=== PATIENT | female | born 1985 | race Caucasian/White ===

== ENCOUNTER 2018-03-24 10:33 | Emergency (ER) | payer MEDICAID ==
--- NOTE | 2018-03-24 10:51 | ER Document Report ---
ED Medical Screen (RME) - General Chief Complaint: Vag Bleeding, +preg <12wks Stated Complaint: VAGINAL BLEEDING Time Seen by Provider: 03/24/18 10:47 Notes: 32-year-old female patient is 8 weeks by history. Has been seen at health department. Has not had an ultrasound. Developed some bright red bleeding yesterday that has persisted today. There are no clots, there is no cramping. She is A0, had a about 9 years ago. Does not recall receiving RhoGam shots at that time. I have greeted and performed a rapid initial assessment of this patient. A comprehensive ED assessment and evaluation of the patient, analysis of test results and completion of the medical decision making process will be conducted by additional ED providers. TRAVEL OUTSIDE OF THE [place] IN LAST 30 DAYS: No - Related Data Allergies/Adverse Reactions: No Known Allergies Allergy (Unverified 03/24/18 10:47) Past Medical History - Social History Chew tobacco use (# tins/day): No Frequency of alcohol use: None Drug Abuse: None Renal/ Medical History: Denies: Hx Peritoneal Dialysis Physical Exam - Vital signs Vitals: Temp Pulse Resp BP Pulse Ox 98.2 F 97 14 111/70 100 03/24/18 10:39 03/24/18 10:39 03/24/18 10:39 03/24/18 10:39 03/24/18 10:39 Course - Vital Signs Vital signs: Temp Pulse Resp BP Pulse Ox 98.2 F 97 14 111/70 100 03/24/18 10:39 03/24/18 10:39 03/24/18 10:39 03/24/18 10:39 03/24/18 10:39
--- NOTE | 2018-03-24 11:35 | RADIOLOGY REPORT (SQ) ---
EXAM DESCRIPTION: U/S OB TRANSVAGINAL W/O DOP COMPLETED DATE/TIME: 03/24/2018 11:25 am REASON FOR STUDY: 8wk, bleeding, no US COMPARISON: None. TECHNIQUE: Transvaginal static and realtime grayscale images acquired of the pelvis. Additional parisa cted spectral and color Doppler images recorded. All images stored on PACs. bHCG: Pending CLINICAL DATES: Last menses 01/28/2018 LIMITATIONS: None. FINDINGS: FETUS: Living intrauterine . ULTRASOUND EGA: 8 weeks 2 days ULTRASOUND ROCKY: 11/01/2018 CRL: Generates an age of 8 weeks 2 days FHR: 168 beats per minute. SUBCHORIONIC BLEED: Yes SIZE OF BLEED: 3 x 1.7 x 1.3 cm in size UTERUS: No masses. No anomalies. Uterus is 9 x 7 x 8 cm in size CERVICAL LENGTH: 2 cm Closed. RIGHT ADNEXA: Normal ovary with normal vascular flow. Right ovary 1.8 x 1.6 x 1.5 cm in size No adnexal free fluid. No adnexal masses. LEFT ADNEXA: Normal ovary with normal vascular flow. Left ovary 3.7 x 3.1 x 2.5 cm in size No adnexal free fluid. No adnexal masses. FREE FLUID: None. OTHER: No other significant finding. IMPRESSION: LIVING INTRAUTERINE . EGA 8 weeks 2 days Trimester of : First - 0 to 13 weeks. TECHNICAL DOCUMENTATION: JOB ID: [id number] [employer]- All Rights Reserved rev Reading location - IP/workstation name: [facility]
--- NOTE | 2018-03-24 11:39 | ER Document Report ---
ED General - General Chief Complaint: Vag Bleeding, +preg <12wks Stated Complaint: VAGINAL BLEEDING Time Seen by Provider: 03/24/18 10:47 Mode of Arrival: Ambulatory Information source: Patient Notes: Patient presents emergency department with complaints of vaginal bleeding this morning. Patient reports she is approximately 8 weeks . Patient reports LMP 01/28/2018. Patient reports this morning at work she felt like she was bleeding. She reports she filled a panty liner. She reports she always wears a panty liners. She then presented to the emergency department. Denies trauma. Denies cramps abdominal pain. Denies fever vomiting diarrhea. Reports she was spotting just a little bit couple hours ago. No recent bleeding. She is unsure what her blood type is. Denies vaginal discharge, denies pain with void. Denies urinary frequency. TRAVEL OUTSIDE OF THE [place] 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 Lives with: Family Family History: None Patient has suicidal ideation: No Patient has homicidal ideation: No - Medical History Medical History: Negative Renal/ Medical History: Denies: Hx Peritoneal Dialysis Past Surgical History: Reports: Hx Section Review of Systems - Review of Systems Notes: Review HPI for review of systems., All other systems negative Physical Exam - Vital signs Vitals: Temp Pulse Resp BP Pulse Ox 98.2 F 97 14 111/70 100 03/24/18 10:39 03/24/18 10:39 03/24/18 10:39 03/24/18 10:39 03/24/18 10:39 - Notes Notes: PHYSICAL EXAMINATION: GENERAL: Well-appearing and in no acute distress HEAD: Atraumatic, normocephalic. EYES: Pupils equal round, extraocular movements intact, sclera anicteric, conjunctiva are normal. ENT: nares patent, oropharynx clear without exudates. Moist mucous membranes. NECK: Normal range of motion, supple without lymphadenopathy LUNGS: CTAB and equal. No wheezes rales or rhonchi. HEART: Regular rate and rhythm without murmurs ABDOMEN: Soft, no tenderness. No guarding, no rebound EXTREMITIES: Normal range of motion, no pitting edema. No cyanosis. NEUROLOGICAL: Cranial nerves grossly intact. Normal sensory/motor exams. PSYCH: Normal mood, normal affect. SKIN: Warm, Dry, normal turgor, no rashes or lesions noted Course - Re-evaluation Re-evalutation: 03/24/18 12:25 A+ No rhogam needed, pt provided with copy of US, US living IUP at 8 weeks 2 days and heart rate of 168. Subchorionic bleed, No active bleeding at this time. No abdominal pain. 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 - Vital Signs Vital signs: Temp Pulse Resp BP Pulse Ox 98.2 F 97 14 111/70 100 03/24/18 10:39 03/24/18 10:39 03/24/18 10:39 03/24/18 10:39 03/24/18 10:39 - Laboratory Result Diagrams: 03/24/18 11:20 Laboratory results interpreted by me: 03/24/18 03/24/18 11:20 11:20 Hgb 11.9 L Hct 34.4 L Seg Neutrophils % 79.2 H Lymphocytes % 10.9 L Beta HCG, Quant 370824.00 H - Diagnostic Test Radiology reviewed: Image reviewed, Reports reviewed - EXAM DESCRIPTION: U/S OB TRANSVAGINAL W/O DOP COMPLETED DATE/TIME: 03/24/2018 11:25 am REASON FOR STUDY : 8wk, bleeding, no US COMPARISON: None. TECHNIQUE: Transvaginal static and realtime grayscale images acquired of the pelvis. Additional selected spectral and color Doppler images recorded. All images stored on PACs. bHCG: Pending CLINICAL DATES: Last menses 01/28/2018 LIMITATIONS: None. FINDINGS: FETUS: Living intrauterine . ULTRASOUND EGA: 8 weeks 2 days ULTRASOUND ROCKY: 11/01/2018 CRL: Generates an age of 8 weeks 2 days FHR: 168 beats per minute. SUBCHORIONIC BLEED: Yes SIZE OF BLEED: 3 x 1.7 x 1.3 cm in size UTERUS: No masses. No anomalies. Uterus is 9 x 7 x 8 cm in size CERVICAL LENGTH: 2 cm Closed. RIGHT ADNEXA: Normal ovary with normal vascular flow. Right ovary 1.8 x 1.6 x 1.5 cm in size No adnexal free fluid. No adnexal masses. LEFT ADNEXA : Normal ovary with normal vascular flow. Left ovary 3.7 x 3.1 x 2.5 cm in size No adnexal free fluid. No adnexal masses. FREE FLUID: None. OTHER: No other significant finding. IMPRESSION: LIVING INTRAUTERINE . EGA 8 weeks 2 days Trimester of : First - 0 to 13 weeks. 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 heart rate of 168. Subchorionic bleed *Follow up with a BLAST FURNACE HELPER or the health department for recheck *Avoid sexual intercourse until follow up *Return to ED for worsening condition, changes, needs Forms: Return to Work
[2018-03-24 11:54] LABS: ABSOLUTE EOSINOPHILS # (AUTO) 0.1 10^3/uL (0.0-0.6); ABSOLUTE MONOCYTES (AUTO) 0.8 10^3/uL (0.1-1.4); BASOPHILS % (AUTO) 0.2 % (0-2); EOSINOPHILS % (AUTO) 0.6 % (0-6); HEMATOCRIT 34.4 % (36.0-47.0); HEMOGLOBIN 11.9 g/dL (12.0-15.5); LYMPHOCYTES % (AUTO) 10.9 % (13-45); MEAN CORPUSCULAR HEMOGLOBIN 31.2 pg (27.0-33.4); MEAN CORPUSCULAR HGB CONC 34.6 g/dL (32.0-36.0); MEAN CORPUSCULAR VOLUME 90 fl (80-97); MONOCYTES % (AUTO) 9.1 % (3-13); PLATELET COUNT 298 10^3/uL (150-450); RED BLOOD COUNT 3.82 10^6/uL (3.72-5.28); RED CELL DISTRIBUTION WIDTH 12.8 % (11.5-14.0); SEGMENTED NEUTROPHILS % (AUTO) 79.2 % (42-78); TOTAL CELLS COUNTED % (AUTO) 100 %; WHITE BLOOD COUNT 8.8 10^3/uL (4.0-10.5)
[2018-03-24 13:10] VITALS: BP 106/76
== END 2018-03-24 13:00 | disposition home or self-care (01) ==
LOC: ER 10:33
DX: O20.8 Other hemorrhage in early pregnancy (principal); Z3A.08 8 weeks gestation of pregnancy
CPT/HCPCS: 36415; 76817; 84702; 85025; 86900; 86901; 99284

== ENCOUNTER 2018-10-24 00:22 | Inpatient (IN) | payer MEDICAID ==
[2018-10-24 01:07] LABS: APPEARANCE,URINE CLEAR; BILIRUBIN,URINE NEGATIVE (NEGATIVE); COLOR,URINE STRAW; GLUCOSE, URINE NEGATIVE (NEGATIVE); KETONES,URINE NEGATIVE (NEGATIVE); LEUKOCYTE ESTERASE,URINE NEGATIVE (NEGATIVE); NITRITE,URINE NEGATIVE (NEGATIVE); PROTEIN,URINE NEGATIVE (NEGATIVE); URINE SPECIFIC GRAVITY 1.005; UROBILINOGEN,URINE NEGATIVE mg/dL (<2.0)
[2018-10-24] MEDS ORDERED: RINGERS SOLUTION,LACTATED 1,000 ML IV PRN ×2 (01:18→02:07)
[2018-10-24] MEDS ORDERED: CITRIC ACID/SODIUM CITRATE ORAL SOLN 15 ML UDCUP ONE (01:19)
[2018-10-24] MEDS ORDERED: CEFAZOLIN 2 GM/D5W RTU 2 GM/50 ML RTUPB IV ONE (01:20)
[2018-10-24] MEDS ORDERED: CEFAZOLIN 2 GM/D5W RTU 2 GM/50 ML RTUPB IV PRN (01:21)
[2018-10-24] MEDS ORDERED: CITRIC ACID/SODIUM CITRATE ORAL SOLN 15 ML UDCUP PO ONE ×2 (01:23→02:20)
[2018-10-24] MEDS ORDERED: RINGERS SOLUTION,LACTATED 1,000 ML IV ONE (01:30)
[2018-10-24] MEDS ORDERED: OXYTOCIN 10 UNIT/ML VIAL ONE (01:49)
[2018-10-24] MEDS ORDERED: EPHEDRINE SULFATE INJ 50 MG/1 ML AMPULE ONE (01:49)
[2018-10-24] MEDS ORDERED: MIDAZOLAM 2 MG/2 ML INJ ONE (01:49)
[2018-10-24] MEDS ORDERED: OXYTOCIN/NORMAL SALINE 20 UNIT/1,000 ML RTUINJ ONE (01:49)
[2018-10-24] MEDS ORDERED: FENTANYL CITRATE INJ/PF 100 MCG/2 ML AMPUL ONE (01:49)
[2018-10-24] MEDS ORDERED: ONDANSETRON HCL INJ/PF 4 MG/2 ML SDV ONE (01:50)
[2018-10-24 01:53] LABS: ABSOLUTE EOSINOPHILS # (AUTO) 0.1 10^3/uL (0.0-0.6); ABSOLUTE LYMPHOCYTES (AUTO) 2.8 10^3/uL (0.5-4.7); ABSOLUTE NEUT (AUTO) 6.6 10^3/uL (1.7-8.2); BASOPHILS % (AUTO) 0.3 % (0-2); EOSINOPHILS % (AUTO) 0.9 % (0-6); HEMATOCRIT 29.3 % (36.0-47.0); LYMPHOCYTES % (AUTO) 26.6 % (13-45); MEAN CORPUSCULAR HEMOGLOBIN 29.9 pg (27.0-33.4); MEAN CORPUSCULAR HGB CONC 34.1 g/dL (32.0-36.0); MEAN CORPUSCULAR VOLUME 88 fl (80-97); MONOCYTES % (AUTO) 9.6 % (3-13); PLATELET COUNT 229 10^3/uL (150-450); RED BLOOD COUNT 3.34 10^6/uL (3.72-5.28); RED CELL DISTRIBUTION WIDTH 16.3 % (11.5-14.0); SEGMENTED NEUTROPHILS % (AUTO) 62.6 % (42-78); TOTAL CELLS COUNTED % (AUTO) 100 %; WHITE BLOOD COUNT 10.6 10^3/uL (4.0-10.5)
[2018-10-24 01:56] LABS: URINE AMPHETAMINES SCREEN NEGATIVE; URINE BARBITURATES SCREEN NEGATIVE; URINE BENZODIAZEPINES SCREEN NEGATIVE; URINE COCAINE SCREEN NEGATIVE; URINE MARIJUANA (THC) SCREEN NEGATIVE; URINE METHADONE SCREEN NEGATIVE; URINE PHENCYCLIDINE SCREEN NEGATIVE
--- NOTE | 2018-10-24 02:01 | Admission Physical ---
Datetime Report Generated by CPN: 10/24/2018 02:00 CURRENT ADMISSION Chief Complaint: Suspected Ruptured Membranes Indication for Induction: Not Applicable Admit Impression : Term, Intrauterine ; Ruptured Membranes Admit Plan: Admit to Unit; Initiate Section Protocol ALLERGIES Medication Allergies: No Medication Allergies: No Known Allergies (10/24/2018) Latex: No Latex Allergies Food Allergies: n/a Environmental Allergies: n/a OBSTETRICAL HISTORY EDC: 11/04/2018 00:00 : 2 Para: 1 Term: 1 : 0 SAB: 0 IAB: 0 Ectopic: 0 Livin Cesareans: 1 VBACs: 0 Multiple Births: 0 Gestational Diabetes: No Rh Sensitization: No Incompetent Cervix: No INDERJIT: No Infertility: No ART Treatment: No Uterine Anomaly: No IUGR: No Hx Previous C/S: Yes Macrosomia: No Hx Loss/Stillborn: No PIH: No Hx : No Placenta Previa/Abruption: No Depression/PP Depression: No PTL/PROM: No Post Hemorrhage: No Current Procedures: Ultrasound Obstetrical History Comments: G1 - 40 weeks, for CPD G2 - Current, repeat SEE RECORDS Alcohol: No Marijuana : No Cocaine: No Other Illicit Drugs: No Cigarettes: Never Smoker. 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 Surgery: No Heart Disease: No Hosp/Surgery: Yes Autoimmune Disorder: No Anesthetic Complications: No Kidney Disease: No Abnormal Pap Smear: No Neuro/Epilepsy: No Psychiatric Disorders: No Other Medical Diseases: No Hepatitis/Liver Disease: No Significant Family History: No Varicosities/Phlebitis: No Trauma/Violence : No Thyroid Dysfunction: No Medical History Comments: 2009, wisdom teeth (age 16), eye surgery (age 4) INFECTIOUS HISTORY Gonorrhea: No Genital Herpes: No Chlamydia: No Tuberculosis: No Syphilis: No Hepatitis: No HIV/AIDS Exposure: No Rash or Viral Illness: No HPV: No PHYSICAL EXAM General: Normal HEENT: Normal Neurologic: Normal Thyroid: Normal Heart: Normal Lungs: Normal Breast: Deferred Back: Normal Abdomen: Normal Genitourinary Exam: Normal Extremities: Normal DTRs: Normal Pelvic Type: Adequate Vital Signs: Reviewed MEMBRANES Pooling: Positive Membranes: Intact FETUS A EGA: 38.3 Monitoring: External US FHR- Baseline: 120 Variability: Moderate 6-25bpm FHR Category: Category I PLANS FOR LABOR AND DELIVERY Labor and Delivery: None Pain Management: Spinal Feeding Preference: Breast Benefit of Breast Feed Discussed: Yes Circumcision: N/A INFORMED CONSENT Signature: with User ID: [email or web address]
[2018-10-24] MEDS ORDERED: PROMETHAZINE HCL INJ 25 MG/1 ML VIAL IV PRN ×2 (02:07→02:50)
[2018-10-24] MEDS ORDERED: SIMETHICONE 80 MG TAB.CHEW PO PRN (02:07)
[2018-10-24] MEDS ORDERED: OXYCODONE-ACETAMINOPHEN 5-325 MG TABLET PO PRN (02:07)
[2018-10-24] MEDS ORDERED: ACETAMINOPHEN 325 MG TABLET PO PRN (02:07)
[2018-10-24] MEDS ORDERED: NORMAL SALINE IV PRN (02:07)
[2018-10-24] MEDS ORDERED: ACETAMINOPHEN 1,000 MG/100 ML RTUPB IV PRN (02:07)
[2018-10-24] MEDS ORDERED: MEASLES,MUMPS&RUBELLA VACC/PF 0.5 ML VIAL SUBCUT PRN (02:07)
[2018-10-24] MEDS ORDERED: DIPH/PERTUSS(ACELL)/TETANUS VAC/PF 0.5 ML SYR (>=10YO) IM PRN (02:07)
[2018-10-24] MEDS ORDERED: OXYTOCIN IV PRN (02:07)
[2018-10-24] MEDS ORDERED: HYDROMORPHONE HCL INJ/PF 2 MG/ML AMPULE IV PRN (02:07)
[2018-10-24] MEDS ORDERED: BUPIVACAINE HCL/DEX-WATER/PF 15 MG/2 ML AMPULE ONE (02:17)
[2018-10-24] MEDS ORDERED: DIPHENHYDRAMINE HCL 50 MG/ML VIAL IV PRN (02:50)
[2018-10-24] MEDS ORDERED: MEPERIDINE HCL/PF INJ 25 MG/1 ML DISP.SYRIN IV PRN (02:50)
[2018-10-24] MEDS ORDERED: MORPHINE SULFATE 10 MG/ML INJ IV PRN (02:50)
[2018-10-24] MEDS ORDERED: ONDANSETRON HCL INJ/PF 4 MG/2 ML SDV IV PRN (02:50)
[2018-10-24] MEDS ORDERED: FENTANYL CITRATE INJ/PF 100 MCG/2 ML AMPUL IV PRN ×3 (02:50)
[2018-10-24] MEDS ORDERED: NALBUPHINE HCL INJ 10 MG/1 ML AMPULE IM ONE (03:05)
--- NOTE | 2018-10-24 03:07 | Operative Report ---
Operative Report DATE OF SURGERY: 10/24/18 PREOPERATIVE DIAGNOSIS: Rupture membranes at term for repeat POSTOPERATIVE DIAGNOSIS: Same OPERATION: Repeat via low transverse uterine incision SURGEON: NIECY ARROYO ANESTHESIA: Spinal TISSUE REMOVED OR ALTERED: Placenta COMPLICATIONS: None ESTIMATED BLOOD LOSS: 250 cc INTRAOPERATIVE FINDINGS: Viable female infant normal uterus tubes and ovaries PROCEDURE: Patient was taken to the OR and placed in supine position after her spinal anesthesia. She is prepared and draped in sterile fashion. Ross was placed for drainage of the bladder. Low transverse incision was made and carried down the level of the fascia. The fascial incision was made with knife and extended bilaterally with curved Page scissors. The fascia was off the rectus muscles using sharp and blunt dissection. The rectus muscles are in the midline. The peritoneum was entered without incident. Bladder blade was placed in uterine segment was identified. A low transverse incision was made creating a bladder flap. Bladder blade was placed low transverse uterine incision was made with the csafe knife and extended with fingertips. The baby was delivered with some fundal pressure. Mouth and nose were suctioned free. The cord is doubly clamped and cut. Baby is passed off to the web administrator in attendance. The placenta was manually extracted with trailing membranes. The uterus was externalized wrapped in a moist lap sponge. Uterine contents wiped free. Uterus was closed with a running locking layer of 0 chromic suture using the second layer to imbricate the first completing a double layer closure of the uterus. The serosa was closed with a running 2-0 chromic stitch. The pelvis was irrigated and suctioned free of fluid the uterus was replaced in the abdomen. The abdominal wall peritoneum was closed with running 2-0 chromic stitch. Fascia was closed with a running 0 Vicryl in 2 segments. Makayla's layer was brought together with 0 plain gut stitch and the skin was closed with running subcuticular 4-0 undyed Vicryl stitch. The wound was dressed mother and baby did well.
[2018-10-24] MEDS ORDERED: ACETAMINOPHEN 1,000 MG/100 ML RTUPB IV ONE (03:40)
[2018-10-24] MEDS ORDERED: HYDROMORPHONE HCL INJ/PF 2 MG/ML AMPULE ONE (04:49)
[2018-10-24] MEDS ORDERED: KETOROLAC TROMETHAMINE INJ/PF 30 MG/1 ML SDV ONE (05:04)
[2018-10-24] MEDS: KETOROLAC TROMETHAMINE INJ/PF 30 MG/1 ML SDV IV SCH ×3 (05:12→21:12)
[2018-10-24] MEDS ORDERED: IBUPROFEN 800 MG TABLET PO SCH (06:00)
[2018-10-24] MEDS: OXYCODONE-ACETAMINOPHEN 5-325 MG TABLET PO PRN ×2 (07:51→12:46)
[2018-10-24] MEDS: DOCUSATE SODIUM 100 MG CAPSULE PO SCH ×2 (09:26→17:31)
[2018-10-24] MEDS: PRENATAL VITAMIN W DHA CAPSULE PO SCH (09:26)
[2018-10-25] MEDS: OXYCODONE-ACETAMINOPHEN 5-325 MG TABLET PO PRN ×4 (00:33→23:31)
[2018-10-25] MEDS: IBUPROFEN 800 MG TABLET PO SCH ×4 (06:28→23:31)
[2018-10-25 08:36] LABS: HEMATOCRIT 28.8 % (36.0-47.0); HEMOGLOBIN 9.7 g/dL (12.0-15.5); MEAN CORPUSCULAR HEMOGLOBIN 29.8 pg (27.0-33.4); MEAN CORPUSCULAR HGB CONC 33.7 g/dL (32.0-36.0); MEAN CORPUSCULAR VOLUME 88 fl (80-97); PLATELET COUNT 217 10^3/uL (150-450); RED BLOOD COUNT 3.26 10^6/uL (3.72-5.28); RED CELL DISTRIBUTION WIDTH 16.9 % (11.5-14.0); WHITE BLOOD COUNT 12.7 10^3/uL (4.0-10.5)
--- NOTE | 2018-10-25 08:39 | PDOC PROGRESS REPORT ---
Subjective-OB Progress Note for:: 10/25/18 Physical Exam (OB) Vital Signs: Temp Pulse Resp BP Pulse Ox 99.0 F 94 16 107/55 L 96 10/25/18 03:15 10/25/18 03:15 10/25/18 03:15 10/25/18 03:15 10/25/18 03:15 Intake & Output 10/24/18 10/25/18 10/26/18 06:59 06:59 06:59 Intake Total 2862 Output Total 2825 Balance 37 - PIH/Pre-Eclampsia Clonus: Negative - Dressing Removed: Yes - Opsite scant drainage Incision: Dressing Closure Type: op-site - Lochia Lochia Amount: Scant < 10 ml Lochia Color: Rubra/Red - Abdomen Description: Tender, Soft, Round Hernia Present: No Bowel Sounds: Normoactive Flatus Presence: Present Fundal Description: Firm, Midline Fundal Height: u/u - u/2 - Respiratory Breath sounds: Clear - Extremities Calf: Normal Assessment and Plan(PN) Plan:: routine post op care - Time Spent with Patient Time with patient: Less than 15 minutes - Disposition Anticipated Discharge: Home Within: within 24 hours
[2018-10-25] MEDS: DOCUSATE SODIUM 100 MG CAPSULE PO SCH ×2 (09:08→17:42)
[2018-10-25] MEDS: PRENATAL VITAMIN W DHA CAPSULE PO SCH (09:08)
[2018-10-26] MEDS: IBUPROFEN 800 MG TABLET PO SCH (06:27)
[2018-10-26] MEDS: PRENATAL VITAMIN W DHA CAPSULE PO SCH (09:31)
[2018-10-26] MEDS: DOCUSATE SODIUM 100 MG CAPSULE PO SCH (09:31)
--- NOTE | 2018-10-26 10:36 | PDOC DISCHARGE SUMMARY ---
Final Diagnosis Discharge Date: 10/26/18 - Final Diagnosis (1) delivery delivered Is this a current diagnosis for this admission?: Yes Discharge Data - Discharge Medication Home Medications: Chlorpheniramine Maleate [Chlor Hist 4 mg Tablet] 4 mg PO DAILY 03/24/18 Acetaminophen [Tylenol 325 mg Tablet] 650 mg PO PRN PRN 10/24/18 Ferrous Sulfate [Iron] 325 mg PO DAILY 10/24/18 Vits96/Iron Fum/Folic [ Tablet] 1 each PO DAILY 10/24/18 Reason(s) for Admission: Onset of Labor, Ceasarean Section-Repeat Procedures: NST - Diagnosis Test Laboratory: Temp Pulse Resp BP Pulse Ox 98.1 F 80 16 112/80 98 10/26/18 07:23 10/26/18 07:23 10/26/18 07:23 10/26/18 07:23 10/26/18 07:23 10/24/18 10/24/18 10/25/18 00:37 01:43 08:08 RBC 3.34 L 3.26 L Hgb 10.0 L 9.7 L Hct 29.3 L 28.8 L Urine Opiates Screen NEGATIVE - Discharge information/Instructions Discharge Activity: Balance Activity w/Rest, No Lifting Over 10 Pounds, No Lifting/Push/Pulling, Pelvic Rest, No tub bath Discharge Diet: Regular Disposition: HOME, SELF-CARE [facility], Days
[2018-10-26 10:44] VITALS: BP 123/68
== END 2018-10-26 13:30 | disposition home or self-care (01) | DRG 788 ==
LOC: LC 00:22 → LR 01:15 → 2S 05:15
PROVIDERS: ADMIT Obstetrics & Gynecology; ATTEND Obstetrics & Gynecology
PROC: 10D00Z1 Extraction of Products of Conception, Low, Open Approach (ICD-10-PCS; principal; 2018-10-24)
DX: O34.211 Maternal care for low transverse scar from previous cesarean delivery (principal); N85.8 Other specified noninflammatory disorders of uterus; Z3A.38 38 weeks gestation of pregnancy; Z37.0 Single live birth
CPT/HCPCS: 1961; 36415; 80307; 81005; 84112; 85025; 85027; 86592; 86850; 86900; 86901; 94760; 94799; J0131; J0690; J1170; J1885; J2250; J2405; J2590; J3010; J3490; J7120